=== PATIENT | male | born 1960 | race Caucasian/White ===

== ENCOUNTER 2016-09-30 02:03 | Emergency (ER) | payer OTHER ==
[~2016-09-30] VITALS: Ht 177.8 cm; Wt 78.0 kg
[2016-09-30 02:10] VITALS: BP 150/97
[2016-09-30] MEDS ORDERED: IBUPROFEN 600 MG TAB PO ONE (03:30)
[2016-09-30] MEDS ORDERED: NEOMYCIN-BACITRACIN-POLYM UNITDOSE PKG TOP OINT TOP ONE (03:30)
[2016-09-30] MEDS ORDERED: CLINDAMYCIN 600 MG/4 ML VL IM ONE (03:30)
== END 2016-09-30 03:53 | disposition home or self-care (01) ==
LOC: ER 02:09
DX: L02.91 Cutaneous abscess, unspecified (principal); L03.114 Cellulitis of left upper limb; E11.9 Type 2 diabetes mellitus without complications; F17.210 Nicotine dependence, cigarettes, uncomplicated; Z88.0 Allergy status to penicillin
CPT/HCPCS: 82962; 96372